=== PATIENT | female | born 1995 | race Caucasian/White ===

== ENCOUNTER 2019-12-26 17:52 | Emergency (ER) | payer MEDICAID ==
[~2019-12-26] VITALS: Ht 157.5 cm; Wt 64.1 kg
[2019-12-26 17:59] VITALS: BP 117/81
[2019-12-26] MEDS ORDERED: AMOX-422 PO (18:23)
== END 2019-12-26 18:36 | disposition home or self-care (01) ==
LOC: ER 17:53
DX: J02.9 Acute pharyngitis, unspecified (principal); Z20.828 Contact with and (suspected) exposure to other viral communicable diseases
CPT/HCPCS: 36415; 87081; 87635; 87880; 99283

== ENCOUNTER 2021-01-07 19:41 | Emergency (ER) | payer MEDICAID ==
[~2021-01-07] VITALS: Ht 157.5 cm; Wt 70.0 kg
[2021-01-07 19:58] VITALS: BP 116/69
[2021-01-07] MEDS ORDERED: ketorolac tromethamine 15mg/ml inj. IM ONE (22:15)
[2021-01-07] MEDS ORDERED: orphenadrine citrate 60mg/2ml inj. IM ONE (22:15)
[2021-01-07] MEDS ORDERED: NAPR-56 PO (22:38)
[2021-01-07] MEDS ORDERED: METH-797 PO (22:38)
== END 2021-01-07 22:53 | disposition home or self-care (01) ==
LOC: ER 19:42
DX: M51.17 Intervertebral disc disorders with radiculopathy, lumbosacral region (principal)
CPT/HCPCS: 96372; 99284; J1885; J2360

== ENCOUNTER 2021-03-18 19:50 | Emergency (ER) | payer MEDICAID ==
[~2021-03-18] VITALS: Ht 157.5 cm; Wt 67.7 kg
[~2021-03-18 19:50] MED LIST: METH-797 PO
[2021-03-18 20:16] VITALS: BP 108/71
[2021-03-19] MEDS ORDERED: ketorolac trometh inj. 60 MG/2 ML VIAL IM ONE (00:55)
[2021-03-19 01:58] LABS: URINE HCG NEGATIVE (NEG)
== END 2021-03-19 03:39 | disposition home or self-care (01) ==
LOC: ER 19:52
DX: M54.32 Sciatica, left side (principal); M25.552 Pain in left hip; Z88.0 Allergy status to penicillin; Z79.899 Other long term (current) drug therapy
CPT/HCPCS: 72110; 81025; 96372; 99284; J1885

== ENCOUNTER 2023-04-11 20:01 | Emergency (ER) | payer MEDICAID ==
[~2023-04-11] VITALS: Ht 157.5 cm; Wt 72.7 kg
[2023-04-11 20:02] VITALS: TEMP 98.6
[2023-04-11] MEDS: normal saline 1000ML IV soln IVB ONE ×2 (20:36→20:55)
[2023-04-11] MEDS: methylPREDNISolone sod succ 125mg/2ml vial IV ONE (20:41)
[2023-04-11] MEDS: diphenhydrAMINE 50 mg/ml inj IV ONE (20:47)
[2023-04-11 20:50] LABS: BASOPHILS % (AUTO) 0.5 % (0-1); EOSINOPHILS % (AUTO) 0.3 % (0-6); HEMATOCRIT 35.7 % (35.0-45.0); HEMOGLOBIN 11.5 g/dl (12.0-16.0); LYMPHOCYTES # (AUTO) 1.5 X10'3 (1.1-4.8); LYMPHOCYTES % (AUTO) 16.2 % (21-51); MEAN CORPUSCULAR HEMOGLOBIN 26.1 PG (27.0-31.0); MEAN CORPUSCULAR HGB CONC 32.3 g/dL (33.0-36.5); MEAN PLATELET VOLUME 8.1 FL (7.4-10.4); MONOCYTES # (AUTO) 0.5 X10'3 (0-0.9); MONOCYTES % (AUTO) 5.5 % (2-12); NEUTROPHILS # (AUTO) 7.3 X10'3 (1.8-7.7); NEUTROPHILS % (AUTO) 77.5 % (42-75); PLATELET COUNT 383 X10'3 (140-440); RED BLOOD COUNT 4.42 X10'6 (4.20-5.60); RED CELL DISTRIBUTION WIDTH 15.5 % (11.5-14.5); WHITE BLOOD COUNT 9.5 X10'3 (4.5-11.0)
[2023-04-11 21:00] LABS: ALBUMIN 3.7 G/DL (3.4-5.0); ANION GAP 12 (8-16); BLOOD UREA NITROGEN 6 MG/DL (7-18); BUN/CREATININE RATIO 8.1 (10.0-20.0); CHLORIDE 105 MMOL/L (99-107); CREATININE 0.74 MG/DL (0.40-0.90); GLUCOSE 98 MG/DL (70-104); POTASSIUM 3.7 MMOL/L (3.5-5.1); SODIUM 142 MMOL/L (135-145); TOTAL CARBON DIOXIDE 24.9 MMOL/L (24-32); eCRCL 90 ML/MIN; eGFR > 90 ML/MIN
[2023-04-11] MEDS ORDERED: DIPH25CA83 PO (21:49)
[2023-04-11] MEDS ORDERED: PRED20TA PO (21:49)
[2023-04-11 22:21] VITALS: BP 121/77; PULSE 78; RESP 16; O2SAT 98
== END 2023-04-11 22:20 | disposition home or self-care (01) ==
LOC: ER 20:01
DX: T78.49XA Other allergy, initial encounter (principal); R05.9 Cough, unspecified; Z88.0 Allergy status to penicillin; Z79.52 Long term (current) use of systemic steroids; Z79.899 Other long term (current) drug therapy; X58.XXXA Exposure to other specified factors, initial encounter
CPT/HCPCS: 36415; 71045; 80048; 85025; 96361; 96374; 96375; 99285; J1200; J2930; J7030; 99284

== ENCOUNTER 2023-04-30 14:41 | Emergency (ER) | payer MEDICAID ==
[~2023-04-30] VITALS: Ht 157.5 cm; Wt 70.3 kg
[~2023-04-30 14:41] MED LIST changes: +DIPH25CA83 PO
[2023-04-30 14:46] VITALS: BP 130/84; PULSE 96; RESP 16; TEMP 98; O2SAT 100
[2023-04-30] MEDS: dexamethasone sod phosphate 10mg/ml inj PO STA (15:46)
== END 2023-04-30 15:51 | disposition home or self-care (01) ==
LOC: ER 14:41
DX: T78.40XA Allergy, unspecified, initial encounter (principal); L40.9 Psoriasis, unspecified; Z88.0 Allergy status to penicillin; Z79.899 Other long term (current) drug therapy
CPT/HCPCS: 99283; J1100

== ENCOUNTER 2024-06-05 13:05 | Outpatient (CLI) | payer MEDICAID ==
--- NOTE | 2024-06-05 15:39 | RADIOLOGY REPORT ---
CLINICAL HISTORY: PAIN IN RIGHT AND LEFT FOOT TECHNIQUE: Multisequence multiplanar MRI images of the left ankle were obtained without contrast. COMPARISON: None FINDINGS: BONES/JOINTS: No evidence of acute fracture. Minimal t2/stir hyperintense signal at the medial cortex of the medial malleolus, may be reactive to the process in the tibialis posterior tendon described allen abraham. No osteochondral defect or significant chondromalacia. No significant joint effusion. TENDONS: Moderate tendinosis and mild tenosynovitis of the distal tibialis posterior tendon, most pro minent near its navicular insertion. Flexor digitorum longus and flexor hallucis longus tendons are i ntact. Peroneus longus and brevis tendons are intact. Tibialis anterior, extensor hallucis longus, an d extensor digitorum longus tendons are intact. Mild Achilles tendinosis. No tear or significant angel tendinitis. LIGAMENTS: Edema of the deep fibers of the deltoid ligament complex, may be sequelae of sprain or non specific inflammation. Spring ligament complex is intact. Anterior and posterior talofibular ligament s are intact. Syndesmotic ligaments are intact. Calcaneofibular ligament is intact. PLANTAR FASCIA: Mild edema and trace fluid adjacent to the calcaneal attachment of the plantar fascia . SINUS TARSI: Unremarkable. No significant edema. MUSCLES: Mild fatty changes in the abductor digiti minimi muscle. OTHER: No other significant findings. IMPRESSION: 1. Moderate tendinosis and mild tenosynovitis of the distal tibialis posterior tendon. 2. Edema of the deep fibers of the deltoid ligament complex, may be sequelae of sprain or nonspecific inflammation. 3. Minimal t2/stir hyperintense signal at the medial cortex of the medial malleolus, likely reactive to the process in the tibialis posterior tendon. 4. Mild edema and trace fluid adjacent to the calcaneal attachment of the plantar fascia, may be seen with plantar fasciitis.
--- NOTE | 2024-06-05 16:06 | RADIOLOGY REPORT ---
CLINICAL HISTORY: PAIN IN RIGHT AND LEFT FOOT. TECHNIQUE: Multi sequence multi planar MRI images of the left midfoot and forefoot were obtained wit hout IV contrast. COMPARISON: No prior imaging of the left foot was available for comparison at the time of dictation. FINDINGS: Hallux valgus deformity. Slight lateral subluxation of the proximal phalanx of the great t oe with respect of the 1st metatarsal head. Mild to moderate T2/STIR hyperintense signal along the me dial aspect of the 1st metatarsal head, possibly due to stress related changes/stress injury. No ass ociated fracture. Mild to moderate marrow edema also seen in the 2nd and 3rd metatarsal heads, which may be due to stress injury or contusion in the appropriate clinical setting with minimal marrow kings a at the bases of the 2nd and 3rd proximal phalanges. No associated fracture. 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 There is adjacent tendinosis the tibialis posterior tendon near the insertio n. Visualized tendons in the midfoot and forefoot are otherwise intact. Visualized musculature is unr emarkable. IMPRESSION: 1. Hallux valgus deformity with slight lateral subluxation of the proximal phalanx of the great toe w ith respect to the 1st metatarsal head. 2. Marrow edema of the medial aspect of the 1st metatarsal head, possible stress injury or contusion in the appropriate clinical setting. No associated fracture. 3. Marrow edema in the 2nd and 3rd metatarsal heads and, to a lesser extent the bases of the 2nd and 3rd proximal phalanges, may be due to stress related changes/stress injury or contusions. Associated fracture. 4. 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 There is also tendinosis in the distal t ibialis posterior tendon, better demonstrated on the same-day MRI left ankle exam. Correlate with [facility] at surprisetely dictated MRI left ankle report. 5. Additional findings as detailed above.
--- NOTE | 2024-06-05 21:11 | RADIOLOGY REPORT ---
Procedure: MR MRI LOWER EXTREMITY RIGHT 06/05/2024 01:46 PM Indication: Worsening chronic rheumatoid pains. COMPARISON: None TECHNIQUE: Multisequence multiplanar imaging of the right ankle was performed. FINDINGS: Extensor tendons: Unremarkable. Flexor tendons: There is moderate fluid distention of the posterior tibialis tendon sheath mild alter ation of signal in the distal tendon near the insertion reflecting tenosynovitis and tendinosis. No e vidence of tendon tear. Peroneal tendons: Unremarkable. Syndesmotic ligaments: Unremarkable. Medial stabilizer ligaments: Mild thickening and signal alteration of the spring ligament reflecting chronic sprain. The deltoid ligament is otherwise unremarkable. Lateral stabilizer complex: Unremarkable. Sinus Tarsi: Unremarkable. Tarsal tunnel: Unremarkable. Achilles tendon: Unremarkable. Plantar fascia: Unremarkable. Bones/Joints: The ankle mortise and syndesmotic space are maintained. Moderate bone marrow edema not ed in the medial malleolus. No periarticular erosion. No significant joint effusion. Other: Unremarkable. IMPRESSION: 1. Findings suggestive of posterior tibialis tendon dysfunction with tendinosis, tenosynovitis and mo derate bone marrow edema in the adjacent medial malleolus. The findings could also be related to a r ecent trauma. Correlate with history. 2. Evidence of chronic spring ligament sprain.
--- NOTE | 2024-06-05 21:19 | RADIOLOGY REPORT ---
EXAM: MR MRI LOWER EXTREMITY RIGHT; DATE: 06/05/2024 02:14 PM HISTORY: PAIN IN RIGHT AND LEFT FOOT COMPARISON: None TECHNIQUE: Coronal and sagittal T1 and STIR sequences of the right midfoot and forefoot was performed without intravenous contrast. No axial images are available FINDINGS: Moderate bone marrow edema is seen in the 2nd, 3rd and 4th metatarsal heads without cortical erosion or lytic osseous lesion. Small metatarsophalangeal joint effusions noted. Mild bone marrow edema is seen in the 1st proximal phalanx. Mild edema in the hallux sesamoid bones noted. The Lisfranc ligament is intact. The visualized portions of tibialis posterior, flexor hallucis longus, and flexor digitorum tendons a re intact. Visualized portions of peroneus longus and brevis tendons are intact. Visualized portion s of the tibialis anterior, extensor digitorum, and extensor hallucis tendons are intact. The partially visualized plantar fascia is intact. There is no evidence of intermetatarsal bursitis or Howard's neuroma. No significant muscle atrophy is noted. Remainder of the soft tissues are within normal limits. IMPRESSION: Bone marrow edema in 2nd, 3rd and 4th metatarsal heads without evidence of fracture may reflect contu gutierrez or reactive bone marrow edema. Small metatarsophalangeal joint effusions are noted. No periartic ular erosion.
== END 2024-06-05 23:59 | disposition home or self-care (01) ==
LOC: MRI 13:05
PROVIDERS: ATTEND Podiatrist Foot & Ankle Surgery
DX: S93.602A Unspecified sprain of left foot, initial encounter (principal); M79.672 Pain in left foot; M79.671 Pain in right foot; M72.2 Plantar fascial fibromatosis; M25.461 Effusion, right knee; M25.474 Effusion, right foot; M20.12 Hallux valgus (acquired), left foot; R60.0 Localized edema; X58.XXXA Exposure to other specified factors, initial encounter; Y93.89 Activity, other specified; Y92.89 Other specified places as the place of occurrence of the external cause; Y99.8 Other external cause status
CPT/HCPCS: 73718; 73721